=== PATIENT | male | born 1960 | race African-American/Black ===

== ENCOUNTER 2018-12-02 07:56 | Emergency (ER) | payer OTHER ==
--- NOTE | 2018-12-02 08:01 | PDOC ---
History of Present Illness - General Chief Complaint: Wound Stated Complaint: swelling of right lip Time Seen by Provider: 12/02/18 08:01 - History of Present Illness Initial Comments: 12/02/18 08:57 58 years old with past medical history significant for hypertension hyperlipidemia on losartan amlodipine not on any Tanmay inhibitors presents emergency Department with 2 day history of gradually improving right lip swelling. Patient appears to have a cold sore at the crease between his upper and lower lip no history of trauma no new foods no new medications no fever no chills no tooth pain No tongue swelling no difficulty breathing or difficulty swallowing no difficulty speaking. Symptom is mild to moderate states it is improved from last night to today no exacerbating factors. Past History - Past Medical History Allergies/Adverse Reactions: Allergies Allergy/AdvReac Type Severity Reaction Status Date / Time canagliflozin [From Invokana] AdvReac Intermediate Leg pain Verified 12/02/18 07 :58 and lumps Home Medications: Ambulatory Orders Acyclovir/Hydrocortisone [Xerese 5%-1% Cream] 5 gm TP QID 5 Days #1 cream..g. Epinephrine [Epipen] 0.3 mg IJ PRN #1 auto.injct 12/02/18 Review of Systems - Review of Systems Comments:: 12/02/18 08:57 ROS: A complete review of 10 out of 10 review of systems is taken and is negative apart from what is previously mentioned below and in the HPI. *Physical Exam - Physical Exam Comments: 12/02/18 08:57 Vitals: Triage Vital signs reviewed General Appearance: no acute distress, well nourished well developed, Head: Atraumatic, Eyes: Pupils equal reactive round, extraocular movement intact Nose: Nares patent bilaterally;no nasal congestion Throat: Posterior oropharynx without erythema, mucous membranes moist, mouth sore to right margin, mild swelling to right upper and lower lip Neck: Supple;No Nucal rigidity Chest Wall: Nontender Cardiac: Regular rate and rhythym, no murmurs, no rubs, no gallops, Lungs: Clear to auscultation bilateral, good air movement bilaterally, Skin: Warm and dry, no rashes or lesions, no rash, no petechiae Psych: normal mood, normal affect Medical Decision Making - Medical Decision Making 12/02/18 09:05 Mild right lip swelling. No tongue airway involvement likely secondary to cold sore We'll recommend Benadryl acyclovir topical cream we'll provide patient with EpiPen patient instructed to follow up with his doctor in 1-2 days he'll return to ED immediately for any severe worsening symptoms or for any concerns. Also patient noted to be hypertensive but did not take his a.m. blood pressure medications. His a.m. blood pressure medication was given in the ED we'll observe and recheck. *DC/Admit/Observation/Transfer Diagnosis at time of Disposition: Cold sore - Discharge Dispostion Disposition: HOME Condition at time of disposition: Stable Decision to Admit order: No - Prescriptions Prescriptions: Acyclovir/Hydrocortisone [Xerese 5%-1% Cream] 5 gm TP QID 5 Days #1 cream..g. Epinephrine [Epipen] 0.3 mg IJ PRN #1 auto.injct - Referrals Referrals: Zbigniew Viveros MD [Primary Care Provider] - - Patient Instructions Printed Discharge Instructions: Cold Sores Additional Instructions: Take Benadryl 25 mg every 4-6 hours. Apply acyclovir cream 4 times a day for the next 5 days. Return to the emergency room immediately for any worsening symptoms any tongue swelling any difficulty breathing. EpiPen only for life- threatening ALLERGIC reaction otherwise take all your medications as prescribed and follow up with her primary care provider in 1-2 days. - Post Discharge Activity Forms/Work/School Notes: Back to Work
[2018-12-02 08:14] VITALS: TEMP 98.7; BMI 30.2
[2018-12-02] MEDS ORDERED: amLODIPine BESYLATE 10 MG TABLET (FP) PO ONE ×2 (08:45→08:46)
[2018-12-02] MEDS ORDERED: diphenhydrAMINE HCL 25 MG CAPSULE (FP) PO ONE ×2 (08:45→08:48)
[2018-12-02] MEDS ORDERED: amLODIPine BESYLATE 5 MG TABLET (FP) ONE (08:48)
[2018-12-02] MEDS ORDERED: cloNIDine-TTS 0.2 MG/24 HOURS PATCH.TDWK TD ONE (09:40)
[2018-12-02 09:59] VITALS: BP 187/96; PULSE 71
== END 2018-12-02 10:27 | disposition home or self-care (01) ==
LOC: FER 07:56
DX: B00.1 Herpesviral vesicular dermatitis (principal); I10 Essential (primary) hypertension; E78.5 Hyperlipidemia, unspecified
CPT/HCPCS: 99282-25

== ENCOUNTER 2020-03-10 05:01 | Day surgery (SDC) | payer OTHER ==
--- OUTSIDE RECORDS SUMMARY | 2020-02-29 07:45 | XMS ---
:1960 Author Organization [facility] Care Team Providers Name Role Phone Zbigniew Lind Unavailable Unavailable Lelo, Zbigniew Unavailable Unavailable Lelo, Zbigniew Unavailable Unavailable Lelo, Zbigniew Unavailable Unavailable Lelo, Zbigniew Unavailable Unavailable Lelo, Zbigniew Unavailable Unavailable Lelo, Zbigniew Unavailable Unavailable Lelo, Zbigniew Unavailable Unavailable Lelo, Zbigniew Unavailable Unavailable DiGiorno, Christopher Unavailable [phone] DiGiorno, Christopher Unavailable [phone] DiGiorno, Christopher Unavailable [phone] Re-disclosure Warning The records that you are about to access may contain information from federally- assisted alcohol or drug abuse programs. If such information is present, then the following federally mandated warning applies: This information has been disclosed to you from records protected by federal confidentiality rules (42 CFR part 2). The federal rules prohibit you from making any further disclosure of this information unless further disclosure is expressly permitted by the written consent of the person to whom it pertains or as otherwise permitted by 42 CFR part 2. A general authorization for the release of medical or other information is NOT sufficient for this purpose. The Federal rules restrict any use of the information to criminally investigate or prosecute any alcohol or drug abuse patient.The records that you are about to access may contain highly sensitive health information, the redisclosure of which is protected by Article 27-F of the [facility] Public Health law. If you continue you may haveaccess to information: Regarding HIV / AIDS; Provided by facilities licensed or operated by the [facility] Office of Mental Health; or Provided by the [facility] Office for People With Developmental Disabilities. If such information is present, then the following [facility] mandated warning applies: This information has been disclosed to you from confidential records which are protected by state law. State law prohibits you from making any further disclosure of this information without the specific written consent of the person to whom it pertains, or as otherwise permitted by law. Any unauthorized further disclosure in violation of state law may result in a fine or longterm sentence or both. A general authorization for the release of medical or other information is NOT sufficient authorization for further disclosure. Encounters Encounter Providers Location Date Indications Data Source(s ) Attender: Daniel 02/24/2020 MED GEN ([facility] 12:00:00 AM Medical, ) EDT Office Attender: Daniel 02/24/2020 12:00:00 AM ED T MEDGEN ([facility]) Office Attender: Zbigniew Lind 01/27/2020 12:00:00 A M EDT MEDGEN ([facility] [place], [place]) Office Attender: Zbigniew Lind 01/27/2020 12:00:00 A M EDT MEDGEN ([facility] [place] [place]) Office Attender: Zbigniew Lind 01/27/2020 12:00:00 A M EDT MEDGEN ([facility] [place] [place]) Office Attender: Zbigniew Lind 01/27/2020 12:00:00 A M EDT MEDGEN ([facility] [place] [place]) Office Medications Medication Brand Start Product Dose Route Administrative Pharmacy [facility] Indications Reaction Description Data Name Date Form Instructions Instructions Source(s) SUPREP LIQUID 1 complet SUPREP ROSY L MEDGEN ( BOWEL PREP 2019 ed PREP KIT [facility] KIT:[id number] 12:00: Medica l, 00 AM PC) EDT 120 ACTUAT DULERA 02/08/ AEROSOL 65 complet DULE RA MEDGEN (St formoterol :19540 2019 ed [facility]'s fumarate 13 12:00: Medical, 0.005 00 AM PC) MG/ACTUAT / EDT mometasone furoate 0.2 MG/ACTUAT Metered Dose Inhaler [Dulera] DULERA:1246 313 sitagliptin JANUVI 09/09/ TABLET 30 complet GALEN VIA MEDGEN (St 50 MG Oral A:6650 2019 ed [facility] Tablet 44 12:00: Medical, [Mayuvia] 00 AM PC) JANUVIA:665 EDT 044 sitagliptin JANUVI 01/26/ TABLET 30 complet GALEN VIA MEDGEN (St 50 MG Oral A:6650 2019 ed [facility] Tablet 44 12:00: Medical, [Januvia] 00 AM PC) JANUVIA:665 EDT 044 Albuterol ALBUTE 01/26/ AEROSOL 1 complet ALBUT RANDY MEDGEN (St 0.09 ROL 2020 ed SULFATE HFA [facility] MG/ACTUAT SULFAT 12:00: Medica l, Metered E 00 AM PC) Dose HFA:13 EDT Inhaler 35959 ALBUTEROL SULFATE HFA:[id number] Albuterol ALBUTE 01/26/ AEROSOL 1 complet ALBUT RANDY MED[facility] (St 0.09 ROL 2019 ed SULFATE HFA [facility] MG/ACTUAT SULFAT 12:00: Medica l, Metered E 00 AM PC) Dose HFA:13 EDT Inhaler 91361 ALBUTEROL SULFATE HFA:[id number] LANCETS complet LANCETS MEDG EN (St MISCELLANEO 2019 ed MISCELLANEOU [facility] US: 12:00: S Medical, 00 AM PC) EDT BLOOD complet BLOOD MED[facility] ( St GLUCOSE 2019 ed GLUCOSE TEST [facility] TEST IN 12:00: IN VITRO Medica l, VITRO 00 AM STRIP PC) STRIP: EDT BLOOD complet BLOOD MED[facility] ( St GLUCOSE 2019 ed GLUCOSE TEST [facility] TEST IN 12:00: IN VITRO Medica l, VITRO 00 AM STRIP PC) STRIP: EDT LANCETS complet LANCETS MEDG EN (St MISCELLANEO 2019 ed MISCELLANEOU [facility] US: 12:00: S Medical, 00 AM PC) EDT Amlodipine AMLODI 08/30/ TABLET 90 complet AMLOD IPINE MEDGEN (St 10 MG Oral PINE:3 2019 ed [facility] Tablet 62685 12:00: Medical, AMLODIPINE: 00 AM PC) [id number] EDT Metformin METFOR 08/30/ TABLET 180 complet METFOR MIN MEDGEN (St hydrochlori MIN:86 2019 ed [facility] de 1000 MG 1004 12:00: Medical , Oral Tablet 00 AM PC) METFORMIN:8 EDT 16512 Amlodipine AMLODI 08/30/ TABLET 90 complet AMLOD IPINE MEDGEN (St 10 MG Oral PINE:3 2019 ed [facility] Tablet 32658 12:00: Medical, AMLODIPINE: 00 AM PC) [id number] EDT Metformin METFOR 08/30/ TABLET 180 complet METFOR MIN MEDGEN (St hydrochlori MIN:86 2019 ed [facility] de 1000 MG 1004 12:00: Medical , Oral Tablet 00 AM PC) METFORMIN:8 EDT 98099 120 ACTUAT DULERA 20/ AEROSOL 1 complet DULE RA MEDGEN (St formoterol :70087 2019 ed [facility] fumarate 13 12:00: Medical, 0.005 00 AM PC) MG/ACTUAT / EDT mometasone furoate 0.2 MG/ACTUAT Metered Dose Inhaler [Dulera] DULERA:1246 313 Hydrochloro HYDROC 18/ TABLET 90 complet HYDR OCHLOROT MEDGEN (St thiazide HLOROT 2019 ed HIAZIDE-LOSA [facility] 12.5 MG / HIAZID 12:00: RTAN Medica l, Losartan E-LOSA 00 AM PC) Potassium RTAN:9 EDT 100 MG Oral 87180 Tablet HYDROCHLORO THIAZIDE-LO SARTAN:9794 64 Hydrochloro HYDROC /18/ TABLET 90 complet HYDR OCHLOROT MEDGEN (St thiazide HLOROT 2019 ed HIAZIDE-LOSA [facility] 12.5 MG / HIAZID 12:00: RTAN Medica l, Losartan E-LOSA 00 AM PC) Potassium RTAN:9 EDT 100 MG Oral 82923 Tablet HYDROCHLORO THIAZIDE-LO SARTAN:9794 64 Insurance Providers Payer name Policy type Policy ID Covered Covered libertarian's Policy P ruth / Coverage libertarian ID relationship to [place] Inf ormation type south LOCAL [id number] - [id number] [facility] [id number] [employer] BENEFITS FUND Problems, Conditions, and Diagnoses Code Display Name Description Problem Type Effective Data Sour ce(s) Dates Z80.0 Family history of FAMILY HISTORY OF Problem 02/24/2020 MEDGEN (St malignant neoplasm MALIGNANT NEOPLASM 12:00:00 AM [facility] of digestive organs OF DIGESTIVE ORGANS ED Medical, ) R10.30 Lower abdominal LOWER ABDOMINAL Problem 02/24/2020 MEDG EN (St pain, unspecified PAIN, UNSPECIFIED 12:00:00 AM [facility], ) E11.9 Type 2 diabetes TYPE 2 DIABETES Problem 09/28/2019 MEDG EN (St mellitus without MELLITUS WITHOUT 12:00:00 AM [facility] complications COMPLICATIONS EDT Medical, ) E11.9 Type 2 diabetes TYPE 2 DIABETES Problem 09/28/2019 MEDG EN (St mellitus without MELLITUS WITHOUT 12:00:00 AM [facility] complications COMPLICATIONS EDT Medical, ) U07.1 2019-NCOV ACUTE 2019-NCOV ACUTE Problem 09/24/2019 MEDG EN (St RESPIRATORY DISEASE RESPIRATORY DISEASE 12:00:0 0 AM [facility], ) U07.1 2019-NCOV ACUTE 2019-NCOV ACUTE Problem 09/24/2019 MEDG EN (St RESPIRATORY DISEASE RESPIRATORY DISEASE 12:00:0 0 AM [facility], ) Surgeries/Procedures Procedure Description Date Indications Data Source(s) Documentation of current 02/24/2020 MED GEN ([facility] medications (procedure) 12:00:00 AM EDT cassie, ) Documentation of current 02/24/2020 MED GEN ([facility] medications (procedure) 12:00:00 AM EDT cassie, ) Documentation of current 01/27/2020 MED GEN ([facility] medications (procedure) 12:00:00 AM EDT cassie, ) OFFICE OUTPATIENT VISIT 01/27/2020 MEDG EN ([facility] 25 MINUTES 12:00:00 AM [facility] Medical, ) Documentation of current 01/27/2020 MED GEN ([facility] medications (procedure) 12:00:00 AM EDT cassie, ) OFFICE OUTPATIENT VISIT 01/27/2020 MEDG EN ([facility] 25 MINUTES 12:00:00 AM [facility] Medical, ) Documentation of current 09/24/2019 MED GEN ([facility] medications (procedure) 12:00:00 AM EDT cassie, ) Documentation of current 09/24/2019 MED GEN ([facility] medications (procedure) 12:00:00 AM EDT RITA Andrade) Documentation of current 09/24/2019 MED GEN ([facility] medications (procedure) 12:00:00 AM EDT RITA Andrade) PHYSICIAN TELEPHONE 09/24/2019 MED[facility] ( [facility] EVALUATION 11-20 MIN 12:00:00 AM EDRITA Drummond) Documentation of current 09/24/2019 MED GEN ([facility] medications (procedure) 12:00:00 AM EDT RITA Andrade) Documentation of current 09/24/2019 MED GEN ([facility] medications (procedure) 12:00:00 AM EDT RITA Andrade) Documentation of current 09/24/2019 MED GEN ([facility] medications (procedure) 12:00:00 AM EDT RITA Andrade) PHYSICIAN TELEPHONE 09/24/2019 MED[facility] ( [facility] EVALUATION 11-20 MIN 12:00:00 AM EDRITA Drummond) Documentation of current 07/22/2019 MED GEN ([facility] medications (procedure) 12:00:00 AM EST RITA Andrade) Documentation of current 07/22/2019 MED GEN ([facility] medications (procedure) 12:00:00 AM EST RITA Andrade) Documentation of current 07/22/2019 MED GEN ([facility] medications (procedure) 12:00:00 AM EST RITA Andrade) Documentation of current 07/22/2019 MED GEN ([facility] medications (procedure) 12:00:00 AM EST RITA Andrade) Documentation of current 07/22/2019 MED GEN ([facility] medications (procedure) 12:00:00 AM EST RITA Andrade) Documentation of current 07/22/2019 MED GEN ([facility] medications (procedure) 12:00:00 AM EST RITA Andrade) Documentation of current 07/22/2019 MED GEN ([facility] medications (procedure) 12:00:00 AM RITA Ha) OFFICE OUTPATIENT VISIT 07/22/2019 MEDG EN ([facility] 15 MINUTES 12:00:00 AM RITA Eduardo) Documentation of current 07/22/2019 MED GEN ([facility] medications (procedure) 12:00:00 AM EST RITA Andrade) Documentation of current 07/22/2019 MED GEN ([facility] medications (procedure) 12:00:00 AM EST RITA Andrade) Documentation of current 07/22/2019 MED GEN ([facility] medications (procedure) 12:00:00 AM EST RITA Andrade) Documentation of current 07/22/2019 MED GEN ([facility] medications (procedure) 12:00:00 AM EST RITA Andrade) Documentation of current 07/22/2019 MED GEN ([facility] medications (procedure) 12:00:00 AM EST RITA Andrade) Documentation of current 07/22/2019 MED GEN ([facility] medications (procedure) 12:00:00 AM EST [facility]) Documentation of current 07/22/2019 MED GEN ([facility] medications (procedure) 12:00:00 AM EST RITA Andrade) OFFICE OUTPATIENT VISIT 07/22/2019 MEDG EN ([facility] 15 MINUTES 12:00:00 AM RITA Eduardo) Results ID Date Data Source [id number] 09/07/2019 12:00:00 AM EDT [facility] Name Value Range Interpretation Code Description Data Estrella rce(s) Supporting Document(s ) 2019-nCoV [facility] RNA XXX DONTA+probe- Imp This lab was ordered by [facility] and reported by [employer]. Procedure Social History Code Duration Value Status Description Data Source(s ) Smoking 02/24/2020 Born in [place] completed Born in [place] MEDG EN (St 12:00:00 AM EDT [place] [facility], 1978 [facility] 1979 [facility]) Status: Status: Household Members: Household Members : 4 Number of 4 Number of Children: 2 Children: 2 Occupation: Occupation: Maintenance Maintenance Mental Health Mental Health History: Normal History: Normal Non smoker Has an Non smoker Has an occasional glass occasional glass of wine No Drug of wine No Drug use use Smoking 02/24/2020 Unknown if ever completed Unknown if ever MEDG EN (St 12:00:00 AM EDT smoked smoked [facility]) Smoking 01/27/2020 Marital Status: completed Marital Status: MEDG EN (St 12:00:00 AM EDT Household House hold [facility], Members: 4 Number Members: 4 Number PC) of Children: 2 of Children: 2 Occupation: Occupation: Maintenance Maintenance Mental Health Mental Health History: Normal History: Normal Has an occasional Has an occasional glass of wine glass of wine Smoking 01/27/2020 Unknown if ever completed Unknown if ever MEDG EN (St 12:00:00 AM EDT smoked smoked [facility], ) Vital Signs ID Date Data Source UNK Name Value Range Interpretation Code Description Data Source(s) Heart rate 93 /min 93 /min MEDGEN ([facility] , ) Inhaled oxygen 97 % 97 % MEDGEN ([facility], ) Body mass index 31.2 kg/m2 31.2 kg/m2 MEDGEN (S t (BMI) [Ratio] [facility]) Diastolic blood 98 mm[Hg] 98 mm[Hg] MEDGEN (S t pressure [facility]) Systolic blood 160 mm[Hg] 160 mm[Hg] MEDGEN ([facility]) Body weight 211 lb 211 lb MEDGEN ([facility]) Body height 69 in 69 in MEDGEN ([facility]) Heart rate 76 /min 76 /min MEDGEN ([facility]) Respiratory rate 17 /min 17 /min MEDGEN ( [facility]) Body mass index 32.7 kg/m2 32.7 kg/m2 MEDGEN (S t (BMI) [Ratio] [facility]) Diastolic blood 88 mm[Hg] 88 mm[Hg] MEDGEN (S t pressure [facility]) Systolic blood 146 mm[Hg] 146 mm[Hg] MEDGEN ([facility]) Body weight 209 lb 209 lb MEDGEN ([facility]) Body height 67 in 67 in MEDGEN ([facility]) Heart rate 76 /min 76 /min MEDGEN ([facility]) Respiratory rate 17 /min 17 /min MEDGEN ( [facility]) Body mass index 32.7 kg/m2 32.7 kg/m2 MEDGEN (S t (BMI) [Ratio] [facility]) Diastolic blood 88 mm[Hg] 88 mm[Hg] MEDGEN (S t pressure [facility]) Systolic blood 146 mm[Hg] 146 mm[Hg] MEDGEN ([facility] , ) Body weight 209 lb 209 lb MEDGEN ([facility]) Body height 67 in 67 in MEDGEN ([facility]) Heart rate 78 /min 78 /min MEDGEN ([facility]) Respiratory rate 16 /min 16 /min MEDGEN ( [facility]) Body mass index 32.4 kg/m2 32.4 kg/m2 MEDGEN (S t (BMI) [Ratio] [facility], ) Diastolic blood 76 mm[Hg] 76 mm[Hg] MEDGEN (S t pressure [facility]) Systolic blood 138 mm[Hg] 138 mm[Hg] MEDGEN ([facility]) Body weight 207 lb 207 lb MEDGEN ([facility]) Body height 67 in 67 in MEDGEN ([facility]) Heart rate 78 /min 78 /min MEDGEN ([facility]) Respiratory rate 16 /min 16 /min MEDGEN ( [facility]) Body mass index 32.4 kg/m2 32.4 kg/m2 MEDGEN (S t (BMI) [Ratio] [facility], ) Diastolic blood 76 mm[Hg] 76 mm[Hg] MEDGEN (S t pressure [facility]) Systolic blood 138 mm[Hg] 138 mm[Hg] MEDGEN ([facility]) Body weight 207 lb 207 lb MEDGEN ([facility]) Body height 67 in 67 in [facility])
[2020-03-08 14:40] VITALS: BMI 31.1
--- OUTSIDE RECORDS SUMMARY | 2020-03-10 05:08 | XMS ---
:1960 Author Organization [facility] Care Team Providers Name Role Phone Zbigniew [...] is protected by Article 27-F of the [place] State Public Health law. If you continue you may haveaccess to information: Regarding HIV / AIDS; Provided by facilities licensed or operated by the [facility] Office of Mental Health; or Provided by the [facility] Office for People With Developmental Disabilities. If such information is present, then the following [facility] mandated warning applies: This information has been [...] law may result in a fine or shelter sentence or both. A general authorization for the release of medical or other information is NOT sufficient authorization for further disclosure. Encounters Encounter Providers Location Date Indications Data Source(s ) Attender: Daniel 02/24/2020 MED GEN ([facility] [place] 12:00:00 AM Medical, ) EDT Office Attender: Daniel 02/24/2020 12:00:00 AM ED T MEDGEN ([facility]) Office Attender: Zbigniew Lind 01/27/2020 12:00:00 A M EDT MEDGEN ([facility]) Office Attender: Zbigniew Lind 01/27/2020 12:00:00 A M EDT MEDGEN ([facility]) Office Attender: Zbigniew Lind 01/27/2020 12:00:00 A M EDT MEDGEN ([facility]) Office Attender: Zbigniew Lind 01/27/2020 12:00:00 A M EDT MEDGEN ([facility]) Office Medications Medication Brand Start Product Dose Route Administrative Pharmacy [facility] Indications Reaction Description Data Name Date Form Instructions Instructions Source(s) SUPREP 02/23/ LIQUID 1 complet SUPREP ROSY L MEDGEN ( BOWEL PREP 2019 ed PREP KIT [facility] s KIT:[id number] 12:00: Medica l, 00 AM PC) EDT 120 ACTUAT DULERA 02/08/ AEROSOL 65 complet DULE RA MEDGEN ( formoterol :34018 2019 ed [facility] fumarate 13 12:00: Medical, 0.005 00 AM PC) MG/ACTUAT / EDT mometasone furoate 0.2 MG/ACTUAT Metered Dose Inhaler [Dulera] DULERA:1246 313 sitagliptin JANUVI 01/26/ TABLET 30 complet GALEN VIA MEDGEN (St 50 MG Oral A:6650 2019 ed [facility] Tablet 44 12:00: Medical, [Mayuvia] 00 AM PC) JANUVIA:665 EDT 044 sitagliptin JANUVI 01/26/ TABLET 30 complet GALEN VIA [facility] (St 50 MG Oral A:6650 2019 ed [facility] Tablet 44 12:00: Medical, [Mayuvia] 00 AM PC) JANUVIA:665 EDT 044 Albuterol ALBUTE 01/26/ AEROSOL 1 complet ALBUT RANDY MEDGEN (St 0.09 ROL 2020 ed SULFATE HFA [facility] MG/ACTUAT SULFAT 12:00: Medica l, Metered E 00 AM PC) Dose HFA:13 EDT Inhaler 60128 ALBUTEROL SULFATE HFA:[id number] Albuterol ALBUTE 01/26/ AEROSOL 1 complet ALBUT RANDY MED[facility] (St 0.09 ROL 2019 ed SULFATE HFA [facility] MG/ACTUAT SULFAT 12:00: Medica l, Metered E 00 AM PC) Dose HFA:13 EDT Inhaler 59644 ALBUTEROL SULFATE HFA:[id number] LANCETS complet LANCETS MEDG EN (St MISCELLANEO [...] LANCETS complet LANCETS MEDG EN (St MISCELLANEO 2020 ed MISCELLANEOU [facility] US: 12:00: S Medical, 00 AM PC) EDT Amlodipine AMLODI 08/30/ TABLET 90 complet AMLOD IPINE MEDGEN (St 10 MG Oral PINE:3 2019 ed [facility] Tablet 03508 12:00: Medical, AMLODIPINE: 00 AM PC) [id number] EDT Metformin METFOR 08/30/ TABLET 180 complet METFOR MIN MED[facility] (St hydrochlori MIN:86 2019 ed [facility] de 1000 MG 1004 12:00: Medical , Oral Tablet 00 AM PC) METFORMIN:8 EDT 39341 Amlodipine AMLODI 08/30/ TABLET 90 complet AMLOD IPINE MEDGEN (St 10 MG Oral PINE:3 2019 ed [facility] Tablet 94424 12:00: Medical, AMLODIPINE: 00 AM PC) 259987 EDT Metformin METFOR 08/30/ TABLET 180 complet METFOR MIN MEDGEN (St hydrochlori MIN:86 2019 ed [facility] de 1000 MG 1004 12:00: Medical , Oral Tablet 00 AM PC) METFORMIN:8 EDT 77484 120 ACTUAT DULERA 20/ AEROSOL 1 complet DULE RA MEDGEN (St formoterol :74647 2019 ed [facility] fumarate 13 12:00: Medical, 0.005 00 AM PC) MG/ACTUAT / EDT mometasone furoate 0.2 MG/ACTUAT Metered Dose Inhaler [Dulera] DULERA:1246 313 Hydrochloro HYDROC 18/ TABLET 90 complet HYDR OCHLOROT MEDGEN (St thiazide HLOROT 2020 ed HIAZIDE-LOSA [facility] 12.5 MG / HIAZID 12:00: RTAN Medica l, Losartan E-LOSA 00 AM PC) Potassium RTAN:9 EDT 100 MG Oral 84311 Tablet HYDROCHLORO THIAZIDE-LO SARTAN:9794 64 Hydrochloro HYDROC /18/ TABLET 90 complet HYDR OCHLOROT MEDGEN (St thiazide HLOROT 2019 ed HIAZIDE-LOSA [facility] 12.5 MG / HIAZID 12:00: RTAN Medica l, Losartan E-LOSA 00 AM PC) Potassium RTAN:9 EDT 100 MG Oral 97677 Tablet HYDROCHLORO THIAZIDE-LO SARTAN:9794 64 Insurance Providers Payer name Policy type Policy ID Covered Covered constitution party's Policy P ruth / Coverage constitution party ID relationship to Cavanaugh Inf ormation type cavanaugh LOCAL [id number] - [id number] [facility] [id number] [employer] BENEFITS FUND Problems, Conditions, and Diagnoses Code Display Name Description Problem Type Effective Data Sour ce(s) Dates Z80.0 Family history of FAMILY HISTORY OF Problem 02/24/2020 MEDGEN (St malignant neoplasm MALIGNANT NEOPLASM 12:00:00 AM [facility] of digestive organs OF DIGESTIVE ORGANS [facility], ) R10.30 Lower abdominal LOWER ABDOMINAL Problem 02/24/2020 MEDG EN (St pain, unspecified PAIN, UNSPECIFIED 12:00:00 AM [facility] [place], ) E11.9 Type 2 diabetes TYPE 2 DIABETES Problem 09/28/2019 MEDG EN (St mellitus without MELLITUS WITHOUT 12:00:00 AM [facility] complications COMPLICATIONS [facility], ) E11.9 Type 2 diabetes TYPE 2 DIABETES Problem 09/28/2019 MEDG EN (St mellitus without MELLITUS WITHOUT 12:00:00 AM [facility] complications COMPLICATIONS [facility], ) U07.1 2019-NCOV ACUTE 2019-NCOV ACUTE Problem 09/24/2019 MEDG EN (St RESPIRATORY DISEASE RESPIRATORY DISEASE 12:00:0 0 AM [facility] [place], ) U07.1 2019-NCOV ACUTE 2019-NCOV ACUTE Problem 09/24/2019 MEDG EN (St RESPIRATORY DISEASE RESPIRATORY DISEASE 12:00:0 0 AM [facility] [place], ) Surgeries/Procedures Procedure Description Date Indications Data Source(s) Documentation of current 02/24/2020 MED GEN ([facility] medications (procedure) 12:00:00 AM EDT [facility], ) Documentation of current 02/24/2020 MED GEN ([facility] medications (procedure) 12:00:00 AM EDT cassie, ) Documentation of current 01/27/2020 MED GEN ([facility] medications (procedure) 12:00:00 AM EDT cassie, ) OFFICE OUTPATIENT VISIT 01/27/2020 MEDG EN ([facility] 25 MINUTES 12:00:00 AM [facility], ) Documentation of current 01/27/2020 MED GEN ([facility] medications (procedure) 12:00:00 [facility] OFFICE OUTPATIENT VISIT 01/27/2020 MEDG EN ([facility] 25 MINUTES 12:00:00 AM [facility] Medical, ) Documentation of current 09/24/2019 MED GEN ([facility] medications (procedure) 12:00:00 AM EDT cassie, ) Documentation of current 09/24/2019 MED GEN ([facility] medications (procedure) 12:00:00 AM EDT RITA Andrade) Documentation of current 09/24/2019 MED GEN ([facility] medications (procedure) 12:00:00 AM EDT RITA Andrade) PHYSICIAN TELEPHONE 09/24/2019 MEDGEN ( [facility] EVALUATION 11-20 MIN 12:00:00 AM EDT RITA Pang) Documentation of current 09/24/2019 MED GEN ([facility] medications (procedure) 12:00:00 AM EDT [facility]) Documentation of current 09/24/2019 MED GEN ([facility] medications (procedure) 12:00:00 AM EDT [facility]) Documentation of current 09/24/2019 MED GEN ([facility] medications (procedure) 12:00:00 AM EDT [facility]) PHYSICIAN TELEPHONE 09/24/2019 MED[facility] ( [facility] EVALUATION 11-20 MIN 12:00:00 AM EDT [facility]) Documentation of current 07/22/2019 MED GEN [...] (procedure) 12:00:00 AM EST [facility]) OFFICE OUTPATIENT VISIT 07/22/2019 MEDG EN ([facility] 15 MINUTES 12:00:00 AM [facility]) Documentation of current 07/22/2019 MED GEN ([facility] medications (procedure) 12:00:00 AM [facility]) Documentation of current 07/22/2019 MED GEN ([facility] medications (procedure) 12:00:00 AM EST [facility], PC) Documentation of current 07/22/2019 MED GEN ([facility] medications (procedure) 12:00:00 AM EST [facility], [facility]) Documentation of current 07/22/2019 MED GEN ([facility] medications (procedure) 12:00:00 AM EST [facility], PC) Documentation of current 07/22/2019 MED GEN ([facility] medications (procedure) 12:00:00 AM EST [facility], [facility]) Documentation of current 07/22/2019 MED GEN ([facility] medications (procedure) 12:00:00 AM EST [facility], PC) Documentation of current 07/22/2019 MED GEN ([facility] medications (procedure) 12:00:00 AM EST [facility], PC) OFFICE OUTPATIENT VISIT 07/22/2019 MEDG EN ([facility] 15 MINUTES 12:00:00 AM [facility] Beauch[facility], PC) Results ID Date Data Source [id number] 09/07/2019 12:00:00 AM EDT [facility] Name Value Range Interpretation Code Description Data Estrella rce(s) Supporting Document(s ) 2019-nCoV [facility] RNA XXX DONTA+probe- Imp This lab was ordered by [facility] and reported by [facility]. Procedure Social History Code Duration Value Status Description Data Source(s ) Smoking 02/24/2020 [place] MEDG EN (St 12:00:00 AM EDT [place] [facility], 1978 [facility] 1978 [facility]) Status: Status: Household Members: Household [...] (St 12:00:00 AM EDT smoked smoked [facility]) Smoking 01/27/2020 Marital Status: completed Marital Status: MEDG EN (St 12:00:00 AM EDT Household House hold [facility], Members: 4 Number Members: 4 Number PC) of Children: 2 of Children: 2 Occupation: Occupation: Maintenance Maintenance Mental Health Mental Health History: Normal History: Normal Has an occasional Has an occasional glass of wine glass of wine Smoking 01/27/2020 Unknown if ever completed Unknown if ever MEDG EN (St 12:00:00 AM EDT smoked smoked [facility], ) Vital Signs ID Date Data Source UNK Name Value Range Interpretation Code Description Data Source(s) Heart rate 93 /min 93 /min MEDGEN ([facility] , ) Inhaled oxygen 97 % 97 % MEDGEN ([facility], ) Body mass index 31.2 kg/m2 31.2 kg/m2 MEDGEN (S t (BMI) [Ratio] [facility], ) Diastolic blood 98 mm[Hg] 98 mm[Hg] MEDGEN (S t pressure [facility]) Systolic blood 160 mm[Hg] 160 mm[Hg] MEDGEN (St [facility] , ) Body weight 211 lb 211 lb MEDGEN ([facility] , ) Body height 69 in 69 in MEDGEN ([facility] , ) Heart rate 76 /min 76 /min MEDGEN ([facility] , ) Respiratory rate 17 /min 17 /min MEDGEN ( [facility]) Body mass index 32.7 kg/m2 32.7 kg/m2 MEDGEN (S t (BMI) [Ratio] [facility], ) Diastolic blood 88 mm[Hg] 88 mm[Hg] MEDGEN (S t pressure [facility] , ) Systolic blood 146 mm[Hg] 146 mm[Hg] MEDGEN (St [facility] , ) Body weight 209 lb 209 lb MEDGEN ([facility] , ) Body height 67 in 67 in MEDGEN ([facility] , ) Heart rate 76 /min 76 /min MEDGEN ([facility] , ) Respiratory rate 17 /min 17 /min MEDGEN ( [facility] , ) Body mass index 32.7 kg/m2 32.7 kg/m2 MEDGEN (S t (BMI) [Ratio] [facility], ) Diastolic blood 88 mm[Hg] 88 mm[Hg] MEDGEN (S t pressure [facility]) Systolic blood 146 mm[Hg] 146 mm[Hg] MEDGEN ([facility]) Body weight 209 lb 209 lb MEDGEN ([facility]) Body height 67 in in MEDGEN ([facility]) Heart rate 78 /min 78 /min MEDGEN ([facility]) Respiratory rate 16 /min 16 /min MEDGEN ( [facility]) Body mass index 32.4 kg/m2 32.4 kg/m2 MEDGEN (S t (BMI) [Ratio] [facility], ) Diastolic blood 76 mm[Hg] 76 mm[Hg] MEDGEN (S t pressure [facility]) Systolic blood 138 mm[Hg] 138 mm[Hg] MEDGEN ([facility]) Body weight 207 lb 207 lb MEDGEN ([facility]) Body height 67 in in MEDGEN ([facility]) Heart rate 78 /min 78 /min MEDGEN ([facility]) Respiratory rate 16 /min 16 /min MEDGEN ( [facility]) Body mass index 32.4 kg/m2 32.4 kg/m2 MEDGEN (S t (BMI) [Ratio] [facility], ) Diastolic blood 76 mm[Hg] 76 mm[Hg] MEDGEN (S pressure [facility]) Systolic blood 138 mm[Hg] 138 mm[Hg] MEDGEN ([facility]) Body weight 207 lb 207 lb MEDGEN ([facility]) Body height 67 in in [facility])
[2020-03-10 12:37] VITALS: TEMP 97.8
[2020-03-10 13:33] VITALS: BP 147/78; PULSE 70
--- NOTE | 2020-03-11 12:58 | PATH ---
Surgical Pathology Report Patient Name: MARY JANE CARDOZA [facility]. Rec. #: [id number] /Age/Gender: 1960 (Age: 59) / M Account: [id number] Location: ASU-ENDOSCOPY Taken: 03/10/2020 Received: 03/10/2020 Reported: 03/11/2020 Physicians: Daniel Corral D.O. Specimen(s) Received A: RIGHT COLON POLYP B: TRANSVERSE COLON POLYP C: PROXIMAL DESCENDING COLON POLYP D: SIGMOID COLON POLYP Clinical History Abdominal pain Postoperative diagnosis: Colon polyps Final Diagnosis A. COLON, RIGHT, POLYP, POLYPECTOMY: TUBULAR ADENOMA. B. TRANSVERSE COLON, POLYP, BIOPSY: HYPERPLASTIC POLYP. C. PROXIMAL DESCENDING COLON, POLYP, POLYPECTOMY: TUBULAR ADENOMA. D. SIGMOID COLON, POLYP, POLYPECTOMY: TUBULAR ADENOMA. Electronically Signed Josefa Hung M.D. Gross Description A. Received in formalin, labeled "right colon polyp" are 3 granger, irregular portions of soft tissue ranging from 0.4-0.9 cm. in greatest dimension. The specimens are submitted in toto in one cassette. B. Received in formalin, labeled "transverse colon polyp" are 2 granger, irregular portions of soft tissue measuring 0.1 and 0.2 cm. in greatest dimension. The specimens are submitted in toto in one cassette. C. Received in formalin, labeled "proximal descending colon polyp" is a granger, irregular portion of soft tissue measuring 0.5 cm. in greatest dimension. The specimen is submitted in toto in one cassette. D. Received in formalin, labeled "sigmoid colon polyp" is a granger, irregular portion of soft tissue measuring 0.2 cm. in greatest dimension. The specimen is submitted in toto in one cassette. DL/03/10/2020 saudi/03/10/2020
== END 2020-03-10 13:30 | disposition home or self-care (01) ==
LOC: JASU-ENDO 05:01
PROVIDERS: ATTEND Internal Medicine Gastroenterology
PROC: 0DBN8ZX Excision of Sigmoid Colon, Via Natural or Artificial Opening Endoscopic, Diagnostic (ICD-10-PCS; 2020-03-10)
PROC: 0DBF8ZX Excision of Right Large Intestine, Via Natural or Artificial Opening Endoscopic, Diagnostic (ICD-10-PCS; 2020-03-10)
PROC: 0DBL8ZX Excision of Transverse Colon, Via Natural or Artificial Opening Endoscopic, Diagnostic (ICD-10-PCS; 2020-03-10)
PROC: 0DBM8ZX Excision of Descending Colon, Via Natural or Artificial Opening Endoscopic, Diagnostic (ICD-10-PCS; principal; 2020-03-10 12:00)
DX: Z12.11 Encounter for screening for malignant neoplasm of colon (principal); D12.4 Benign neoplasm of descending colon; D12.2 Benign neoplasm of ascending colon; D12.5 Benign neoplasm of sigmoid colon; D12.3 Benign neoplasm of transverse colon; I10 Essential (primary) hypertension; E11.9 Type 2 diabetes mellitus without complications
CPT/HCPCS: 88305-TC

== ENCOUNTER 2022-07-19 07:25 | Emergency (ER) | payer OTHER ==
[2022-07-19 07:35] VITALS: BP 187/102; PULSE 80; RESP 18; TEMP 98; BMI 27.7
== END 2022-07-19 08:02 | disposition home or self-care (01) ==
LOC: FER 07:25
DX: S93.402A Sprain of unspecified ligament of left ankle, initial encounter (principal); W00.0XXA Fall on same level due to ice and snow, initial encounter; X50.0XXA Overexertion from strenuous movement or load, initial encounter
CPT/HCPCS: 73610-TC-LT-FY; 99283-25